=== PATIENT | female | born 1955 | race Caucasian/White ===

== ENCOUNTER 2017-05-19 09:00 | Day surgery (SDC) | payer OTHER ==
[~2017-05-19 09:00] MED LIST: cefOXitin SODIUM 2 GM in D5W 100 ML IV ONE
[2017-05-19] MEDS ORDERED: LIDOCAINE 1% 2 ML INJ ONE (09:10)
[2017-05-19] MEDS ORDERED: LR 1,000 ML IV ONE (09:28)
[2017-05-19] MEDS ORDERED: LIDOCAINE 1% 2 ML INJ ID PRN (09:28)
--- NOTE | 2017-05-19 09:41 | PDGENHP ---
History & Physical Chief Complaint: Cholelithiasis History of Present Illness: 6 year h/o intermittent RUQ pain. Imaging shows gallstones. No F/C/V. No jaundice. Pertinent Past, Social, Family History: PMHx: migraines, osteopenia. PSHx: T& A. Meds: imitrex. NKDA Relevant Physical Exam: Alert, NAD. Abd soft, NTTP Cardiorespiratory Assessment: RRR, CTA B. Risks/benefits of lap jony reviewed with patient and family. Questions answered. Will proceed with lap jony.
[2017-05-19] MEDS ORDERED: MIDAZOLAM 2 MG/2 ML VIAL ONE (09:56)
[2017-05-19] MEDS ORDERED: BUPIVACAINE 0.5% 30 ML SDV ONE (09:58)
[2017-05-19] MEDS ORDERED: MIDAZOLAM 2 MG/2 ML VIAL IVP ONE (09:58)
--- NOTE | 2017-05-19 10:00 | PDANEPAE ---
ANE History of Present Illness Patient presents for lap jony FAUSTINO Past Medical History - Cardiovascular History Hx Hypertension: No Hx Arrhythmias: No Hx Chest Pain: No Hx Coronary Artery / Peripheral Vascular Disease: No Hx CHF / Valvular Disease: No Hx Palpitations: No - Pulmonary History Hx COPD: No Hx Asthma/Reactive Airway Disease: No Hx Recent Upper Respiratory Infection: No Hx Oxygen in Use at Home: No Hx Sleep Apnea: No Sleep Apnea Screening Result - Last Documented: Negative - Neurologic History Hx Cerebrovascular Accident: No Hx Seizures: No Hx Dementia: No Neurologic History Comment: migraine H/A ~4 times/year - not as intense as pre- menopause - Endocrine History Hx Diabetes: No - Renal History Hx Renal Disorders: No Renal History Comment: incontinence not an issue currently - Liver History Hx Hepatic Disorders: No - Neurological & Psychiatric Hx Hx Neurological and Psychiatric Disorders: No - Cancer History Hx Cancer: No - Congenital Disorder History Hx Congenital Disorders: No - GI History Hx Gastrointestinal Disorders: No Gastrointestinal History Comment: 6 years ago gallstones found on US. Recent abd pain. - Other Health History Other Health History: none - Chronic Pain History Chronic Pain: No - Surgical History Prior Surgeries: wisdom teeth removal. tumor from hand excised. attempted bladder sling-aborted 2007 (due to nicked vessel) ANE Review of Systems Review of Systems: - Exercise capacity METS (RN): 4 METS ANE Patient History - Allergies Allergies/Adverse Reactions: No Known Allergies Allergy (Unverified 05/13/17 13:40) - Home Medications Home medications: home medication list seen and reviewed Home Medications: IMITREX 05/13/17 [Last Taken 05/17/17] - NPO status NPO Status: no food or drink >8 hours NPO Since - Liquids (Date): 05/18/17 NPO Since - Liquids (Time): 22:00 NPO Since - Solids (Date): 05/18/17 NPO Since - Solids (Time): 18:00 - Anes Hx Anes Hx: no prior problems - Smoking Hx Smoking Status: Never smoked ANE Labs/Vital Signs - Vital Signs Blood Pressure: 160/85 Heart Rate: 57 Respiratory Rate: 16 O2 Sat (%): 96 Height: 165.1 cm Weight: 68.039 kg ANE Physical Exam - Airway Neck exam: FROM Mallampati Score: Class 2 Mouth exam: normal dental/mouth exam - Pulmonary Pulmonary: no respiratory distress - Cardiovascular Cardiovascular: regular rate and rhythym - ASA Status ASA Status: I ANE Anesthesia Plan Anesthesia Plan: general endotracheal anesthesia (RBA discussed)
[2017-05-19] MEDS ORDERED: fentaNYL 100 MCG/2 ML INJ ONE ×2 (10:02→10:43)
[2017-05-19] MEDS ORDERED: PROPOFOL 200 MG/20 ML VIAL ONE (10:03)
[2017-05-19] MEDS ORDERED: ROCURONIUM 50 MG/5 ML VIAL ONE ×2 (10:03→10:25)
[2017-05-19] MEDS ORDERED: LIDOCAINE 2% 5 ML SDV ONE (10:03)
[2017-05-19] MEDS ORDERED: DEXAMETHASONE 4 MG/ML VIAL ONE (10:19)
[2017-05-19] MEDS ORDERED: ONDANSETRON 4 MG/2 ML VIAL ONE (10:19)
[2017-05-19] MEDS ORDERED: ATROPINE SULFATE 1 MG/ML VIAL ONE (10:39)
[2017-05-19] MEDS ORDERED: SUGAMMADEX SODIUM 200 MG/2 ML VIAL IVP ONE (10:39)
[2017-05-19] MEDS ORDERED: LR 500 ML IV PRN (10:45)
[2017-05-19] MEDS ORDERED: NALOXONE HCL 0.4 MG/ML INJ IVP PRN (10:45)
[2017-05-19] MEDS ORDERED: fentaNYL 100 MCG/2 ML INJ IVP PRN (10:45)
[2017-05-19] MEDS ORDERED: OXYCODONE/APAP 5/325 TAB PO PRN (10:45)
[2017-05-19] MEDS ORDERED: ONDANSETRON 4 MG/2 ML VIAL IVP PRN (10:45)
[2017-05-19] MEDS ORDERED: HYDROCODONE/APAP 5/325 TAB PO PRN (10:45)
--- NOTE | 2017-05-19 11:05 | POSTOPPROG ---
Post Op Note Date of Operation: 05/19/17 Surgeon: Chidi Royal [employer] Development Coordinator: Lisa Pelayo Anesthesiologist: Dr. Sheldon Anesthesia: GET(General Endotracheal) Pre-op Diagnosis: Cholelithiasis Post-op Diagnosis: Cholecystitis Procedure: Lap jony Findings: Stones, mild inflammation Inf/Abcess present in the surg proc area at time of surgery?: No EBL: Minimal
--- NOTE | 2017-05-19 11:17 | POSTANESTH ---
Post Anesthetic Evaluation Cardiovascular Status: Normal, Stable Respiratory Status: Normal, Stable Level of Consciousness/Mental Status: Can Participate in Eval Pain Control: Adequate, Prn Tx Ordered Nausea/Vomiting Control: Adequate, Prn Tx Ordered Complications Possibly Related to Anesthesia: None Noted
[2017-05-19] MEDS ORDERED: cefOXitin SODIUM 2 GM in D5W 100 ML IV ONE (11:30)
--- NOTE | 2017-05-19 11:38 | GOP ---
[f rep st] OPERATIVE REPORT DATE OF OPERATION: 05/19/2017 SURGEON: Washington Royal MD NON DESTRUCTIVE TESTING SUPERVISOR: Lisa Pelayo CFA, whose presence was requested by me, medically necessary for the safe a nd timely completion of this case. ANESTHESIA: General endotracheal. ANESTHESIOLOGIST: Felipe Sheldon M.D. PREOPERATIVE DIAGNOSIS: Symptomatic cholelithiasis. POSTOPERATIVE DIAGNOSIS: Chronic cholecystitis. PROCEDURE PERFORMED: Laparoscopic cholecystectomy. FINDINGS: The patient had gallbladder stones with mild inflammation. No other lesions were identifi ed. ESTIMATED BLOOD LOSS: 20 mL. INDICATIONS: A 61-year-old female with a history of abdominal pain. Imaging demonstrated gallstones . The risks and benefits of the procedure were discussed with the patient and family. Their questions were answered. They wished to proceed. DESCRIPTION OF PROCEDURE: The patient was in the supine position. After the induction of adequate g eneral endotracheal anesthesia, the patient was prepped and draped in the standard surgical fashion. The supraumbilical area was infiltrated with 0.5% Marcaine for local anesthesia. A 5-mm incision wa s made and the abdominal wall was elevated. A Veress needle was inserted and after noting proper pre ssures, the abdomen was insufflated with carbon dioxide. A 5-mm trocar was passed and the camera foll owed. There was no apparent damage with trocar placement. Three more ports were placed; two 5-mm po rts in the right subcostal area, and one 11-mm port in the subxiphoid area. These were all placed du ring direct vision after injecting 0.5% Marcaine for local anesthesia. The gallbladder was then grasped and elevated. Adhesions were taken down using blunt dissection and cautery. The cystic structures were carefully dissected in a similar fashion. The cystic duct and c ystic artery were clearly identified. In addition, the subhepatic space was dissected. Once this cri tical view was obtained, the cystic duct and cystic artery were clipped and transected with scissors. The gallbladder was then elevated off the liver bed using cautery and blunt dissection. It was wit hdrawn through the subxiphoid port. The abdomen was then inspected and good hemostasis was noted. The fascia at the 11-mm port site was closed using 0 Vicryl in an interrupted fashion. All trocars were removed under direct vision, and t he pneumoperitoneum was allowed to escape. The wounds were thoroughly irrigated and the skin was vonda sed with 5-0 Monocryl in a subcuticular stitch. Needle and sponge counts were correct. The wounds w ere sterilely dressed. The patient was extubated and taken to the post-anesthesia care unit in stabl e condition. COMPLICATIONS: None. DRAINS: None. /[id number]/MODL
[2017-05-19 12:03] VITALS: PULSE 65
[2017-05-19 15:26] VITALS: BP 121/65; RESP 16; O2SAT 93
[2017-05-19 15:27] VITALS: TEMP 98.1
== END 2017-05-19 15:25 | disposition home or self-care (01) ==
LOC: FSGY 09:00
PROVIDERS: ATTEND Surgery
PROC: 0FT44ZZ Resection of Gallbladder, Percutaneous Endoscopic Approach (ICD-10-PCS; principal; 2017-05-19 10:15)
DX: K81.9 Cholecystitis, unspecified (principal)
CPT/HCPCS: J0461; J0694; J1100; J2250; J2405; J2704; J3010

== ENCOUNTER → 2017-08-05 | Outpatient (CLI) | payer OTHER | LOC: BMCIMAGING 12:50 | PROVIDERS: ATTEND Family Medicine | DX: Z12.31 Encounter for screening mammogram for malignant neoplasm of breast (principal) | CPT/HCPCS: G0202 ==